=== PATIENT | male | born 1985 | race Caucasian/White ===

== ENCOUNTER 2018-12-04 16:33 | Emergency (ER) | payer OTHER ==
[2018-12-04 16:42] VITALS: BMI 22.4
[2018-12-04 16:43] VITALS: BP 128/82; PULSE 81; RESP 18; TEMP 98.2
--- NOTE | 2018-12-04 16:56 | ED PDOC ---
Arrival/HPI - General Chief Complaint: Shortness Of Breath Historian: Patient - History of Present Illness Narrative History of Present Illness (Text): 12/04/18 16:56 33 year old male, with no significant past medical history, presents to the emergency department complaining of chest wall pain that began 3-4 days ago. Patient reports that the pain was constant, but now only worsens when he inhales. Patient reports taking 500mg Tylenol with minimal relief. He denies any trauma or radiation. Patient also denies any history of smoking or drinking. Patient denies any fever, chills, chest pain, shortness of breath, nausea, vomiting, diarrhea, urinary symptoms, back pain, neck pain, dizziness, or any other complaints. Time/Duration: Other (3-4 days ago) Symptom Onset: Gradual Symptom Course: Unchanged Activities at Onset: Light Context: Home Past Medical History - Provider Review Nursing Documentation Reviewed: Yes - Infectious Disease Hx of Infectious Diseases: None - Psychiatric Hx Substance Use: No - Anesthesia Hx Anesthesia: No Family/Social History - Physician Review Nursing Documentation Reviewed: Yes Family/Social History: No Known Family HX Smoking Status: Never Smoked Hx Alcohol Use: Yes Frequency of alcohol use: Socially Hx Substance Use: No Allergies/Home Meds Allergies/Adverse Reactions: Allergies No Known Allergies Allergy (Verified 12/04/18 16:42) Review of Systems - Physician Review All systems were reviewed & negative as marked: Yes - Review of Systems Constitutional: absent: Fevers, Other (chills) Respiratory: absent: SOB Cardiovascular: Other (chest wall pain). absent: Chest Pain Gastrointestinal: absent: Abdominal Pain, Diarrhea, Nausea, Vomiting Genitourinary Male: absent: Dysuria, Frequency, Hematuria Musculoskeletal: absent: Back Pain, Neck Pain Neurological: absent: Headache, Dizziness Physical Exam Vital Signs Reviewed: Yes Vital Signs Temp Pulse Resp BP Pulse Ox 12/04/18 16:43 98.2 F 81 18 128/82 96 Temperature: Afebrile Blood Pressure: Normal Pulse: Regular Respiratory Rate: Normal Appearance: Positive for: Well-Appearing, Non-Toxic, Comfortable Pain Distress: None Mental Status: Positive for: Alert and Oriented X 3 - Systems Exam Head: Present: Atraumatic, Normocephalic Pupils: Present: PERRL Extroacular Muscles: Present: EOMI Respiratory/Chest: Present: Clear to Auscultation, Good Air Exchange, Tender to Palpation (to anterior chest wall on the right side). No: Respiratory Distress, Accessory Muscle Use Cardiovascular: Present: Regular Rate and Rhythm Neurological: Present: GCS=15, Speech Normal Skin: Present: Warm, Dry, Normal Color. No: Rashes Psychiatric: Present: Alert, Oriented x 3, Normal Insight, Normal Concentration Medical Decision Making ED Course and Treatment: 12/04/18 16:56 Impression: 33 year old male presents complaining of right sided chest wall pain that worsens when inhaling that began 3-4 days ago. Differential Diagnosis included but are not limited to: --Costochondritis --Rib Fracture Plan: -- EKG -- Labs -- CXR -- Toradol --Valium -- Reassess and disposition Progress Notes: 12/04/18 18:33 CXR reveals no focal consolidation, PTX or rib fractures present. D-dimer negative. Shared decision making with patient discussing etiology of chest wall pain deeming it musculoskeletal in nature and agrees for plan for discharge home. He states he will follow up with his PMD and will continue conservative measures at home. Opportunity for questions given with answers provided. Scripts given. He is stable for discharge. - Lab Interpretations Lab Results: Lab Results 12/04/18 17:25: D-Dimer, Quantitative < 200 I have reviewed the lab results: Yes - RAD Interpretation Radiology Orders: 12/04/18 16:48 CHEST PORTABLE [RAD] Stat Stock Crane Operator: Radiologist - EKG Interpretation EKG Interpretation (Text): 12/04/18 17:07 EKG shows NSR at [address] elevation. Flattened T waves. Interpreted by me. Interpreted by ED Physician: Yes Type: 12 lead EKG - Medication Orders Current Medication Orders: Discontinued Medications Diazepam (Valium) 5 mg PO ONCE ONE; Protocol Stop: 12/04/18 16:49 Ketorolac Tromethamine (Toradol) 60 mg IM STAT STA Stop: 12/04/18 16:49 - Scribe Statement The provider has reviewed the documentation as recorded by the Anupibnadja Barthloomew All medical record entries made by the Scribe were at my direction and personally dictated by me. I have reviewed the chart and agree that the record accurately reflects my personal performance of the history, physical exam, medical decision making, and the department course for this patient. I have also personally directed, reviewed, and agree with the discharge instructions and disposition Disposition/Present on Arrival - Present on Arrival Any Indicators Present on Arrival: No History of DVT/PE: No History of Uncontrolled Diabetes: No Urinary Catheter: No History of Decub. Ulcer: No History Surgical Site Infection Following: None - Disposition Have Diagnosis and Disposition been Completed?: Yes Diagnosis: Musculoskeletal chest pain Disposition: HOME/ ROUTINE Disposition Time: 18:41 Patient Plan: Discharge Condition: STABLE Discharge Instructions (ExitCare): Chest Pain That Is Not Caused by the Heart (DC), Chest Pain (ED) Print Language: BAHRAINI Additional Instructions: All medical record entries made by the Scribe were at my direction and personally dictated by me. I have reviewed the chart and agree that the record accurately reflects my personal performance of the history, physical exam, medical decision making, and the department course for this patient. I have also personally directed, reviewed, and agree with the discharge instructions and disposition. Please use medications as prescribed and apply hot compresses to affected area Please follow up with your PCP or clinic in the next week Prescriptions: Cyclobenzaprine [Cyclobenzaprine HCl] 10 mg PO Q6H #10 tab Lidocaine 5% [Lidoderm] 1 each TP Q12 #5 patch Naproxen 500 mg PO BID #6 tab Referrals: Adriana Castro MD [Medical Doctor] - Follow up with primary [facility] [Outside] - Follow up with primary Forms: [employer] (Hungarian), WORK NOTE
[2018-12-04 17:26] VITALS: O2SAT 98
--- NOTE | 2018-12-04 18:26 | RAD ---
Date of service: 12/04/2018 HISTORY: rib pain COMPARISON: No prior. FINDINGS: LUNGS: No active pulmonary disease. PLEURA: No significant pleural effusion identified, no pneumothorax apparent. CARDIOVASCULAR: No atherosclerotic calcification present Normal. OSSEOUS STRUCTURES: No significant abnormalities. VISUALIZED UPPER ABDOMEN: Normal. OTHER FINDINGS: None. IMPRESSION: No active disease.
--- NOTE | 2018-12-04 22:27 | CARD ---
APPROVED REPORT Date of service: 12/04/2018 EKG Measurement Heart [id number] <Conclusion> Normal sinus rhythm Nonspecific T wave abnormality Abnormal ECG
== END 2018-12-04 18:55 | disposition home or self-care (01) ==
LOC: ED 16:33
DX: R07.89 Other chest pain (principal)
CPT/HCPCS: 71045; 85378; 93005; 96372; 99283; J1885